=== PATIENT | female | born 1995 | race American Indian/Alaskan Native ===

== ENCOUNTER 2017-01-13 09:45 | Emergency (ER) | payer OTHER ==
[2017-01-13 09:45] VITALS: BMI 18.6
[2017-01-13 09:50] VITALS: BP 109/71; PULSE 84; RESP 18; TEMP 97.8; O2SAT 100
[2017-01-13 10:14] LABS: RBC URINE 1 /hpf (0-3); URINE BILIRUBIN NEGATIVE (NEGATIVE); URINE BLOOD 3+ (NEGATIVE); URINE COLOR Yellow (YELLOW); URINE GLUCOSE (UA) NORMAL (Normal); URINE KETONE NEGATIVE (NEGATIVE); URINE LEUKOCYTE ESTERASE NEG Leu/uL (Negative); URINE PROTEIN NEGATIVE (NEGATIVE); URINE UROBILINOGEN NORMAL mg/dL (0.2-1.0); WBC URINE 2 /hpf (0-5)
--- NOTE | 2017-01-13 10:35 | C.PDOC ---
History Of Present Illness Nadira Leal, a 21 year old female presents to the ED complaining that her menses has been 15 days late. The patient states that over the past 2 days she has had vaginal spotting which she describes as tissue like material and blood clots. She reports that she was also noted some foul smelling discharge. Denies abdominal pain, back pain, nausea, diarrhea, dysuria, vomiting. Time Seen by Provider: 01/13/17 10:13 Chief Complaint (Nursing): Female Genitourinary History Per: Patient History/Exam Limitations: no limitations Onset/Duration Of Symptoms: Days Current Symptoms Are (Timing): Still Present Quality Of Discomfort: "Pain" Associated Symptoms: denies: Nausea, Vomiting, Diarrhea, Back Pain, Urinary Symptoms (no dysuria) Abnormal Vaginal Bleeding: Yes Past Medical History Reviewed: Historical Data, Nursing Documentation, Vital Signs Vital Signs: Last Vital Signs Temp 97.8 F 01/13/17 09:47 Pulse 84 01/13/17 09:47 Resp 18 01/13/17 09:47 BP 109/71 01/13/17 09:47 Pulse Ox 100 01/13/17 11:00 - Medical History PMH: No Chronic Diseases Surgical History: Appendectomy - [facility] Procedures MONITORING NOS (12/05/14) Family History: States: No Known Family Hx - Social History Hx Alcohol Use: No Hx Substance Use: No - Immunization History Hx Tetanus Toxoid Vaccination: Yes Hx Influenza Vaccination: Yes Hx Pneumococcal Vaccination: Yes Review Of Systems Except As Marked, All Systems Reviewed And Found Negative. Gastrointestinal: Negative for: Nausea, Vomiting, Abdominal Pain Genitourinary: Positive for: Vaginal Discharge (foul smelling discharge), Vaginal Bleeding, Other (Menstrual period late x15 days). Negative for: Dysuria Musculoskeletal: Negative for: Back Pain Physical Exam - Physical Exam Appears: Well, Non-toxic, No Acute Distress Skin: Normal Color, Warm, Dry, No Rash Head: Atraumatic, Normacephalic, No Tenderness, No Swelling Eye(s): bilateral: Normal Inspection, PERRL, EOMI Oral Mucosa: Moist Throat: No Erythema, No Exudate Neck: Normal, Normal ROM, Supple Chest: Symmetrical, No Deformity, No Tenderness Cardiovascular: Rhythm Regular, No Edema, No Murmur Respiratory: Normal Breath Sounds, No Rales, No Rhonchi, No Wheezing Gastrointestinal/Abdominal: Normal Exam, Bowel Sounds, Soft, No Tenderness, No Mass, No Guarding, No Rebound Back: Normal Inspection, No CVA Tenderness, No Vertebral Tenderness, No Paraspinal Tenderness Extremity: Normal ROM, No Tenderness, No Swelling Neurological/Psych: Oriented x3, Normal Speech, Normal Cognition, Normal Motor, Normal Sensation Gait: Steady ED Course And Treatment O2 Sat by Pulse Oximetry: 100 (RA) Pulse Ox Interpretation: Normal Medical Decision Making Medical Decision Makin Patient reports that she has an appointment with her OBGYN in 4 days. Patient strongly advised to follow up. Pelvic exam refused as she is going to see her OBGYN this week. Patient is also requesting medication for bacterial vaginosis. Disposition - Disposition Referrals: Clayton Medrano MD [Non-Staff] - Disposition: HOME/ ROUTINE Disposition Time: 10:32 Condition: GOOD Additional Instructions: FOLLOW UP WITH THE OBGYN WITHIN 1-2 DAYS SCHEDULED. RETURN IF WORSENED. Prescriptions: Metronidazole [Metrogel] 60 gm TP DAILY #2 gel..gram. Instructions: Bacterial Vaginosis (ED) Forms: [facility] (Portuguese) - Clinical Impression Clinical Impression: BV (bacterial vaginosis), test negative - Scribe Statement The provider has reviewed the documentation as recorded by the Scribe Ml Oneal All medical record entries made by the Scribe were at my direction and personally dictated by me. I have reviewed the chart and agree that the record accurately reflects my personal performance of the history, physical exam, medical decision making, and the department course for this patient. I have also personally directed, reviewed, and agree with the discharge instructions and disposition.
== END 2017-01-13 10:52 | disposition home or self-care (01) ==
LOC: C.ER 09:45
DX: N76.0 Acute vaginitis (principal); Z32.02 Encounter for pregnancy test, result negative